=== PATIENT | female | born 1985 | race Two or more races ===

== ENCOUNTER 2020-11-10 15:33 | Emergency (ER) | payer MEDICAID ==
[~2020-11-10] VITALS: Ht 162.6 cm; Wt 78.9 kg
[2020-11-10 15:36] VITALS: BP 113/67
[2020-11-10] MEDS ORDERED: TETANUS-DIPTH-ACEL PERTUSSIS 0.5ML SYR Tdap IM ONE (18:15)
== END 2020-11-10 20:08 | disposition home or self-care (01) ==
LOC: ER 15:35
DX: S61.011A Laceration without foreign body of right thumb without damage to nail, initial encounter (principal); X58.XXXA Exposure to other specified factors, initial encounter; Y93.89 Activity, other specified; Y92.89 Other specified places as the place of occurrence of the external cause; Y99.8 Other external cause status
CPT/HCPCS: 12001; 90471; 90715

== ENCOUNTER 2024-01-01 07:32 | Emergency (ER) | payer MEDICAID, OTHER ==
[~2024-01-01] VITALS: Ht 162.6 cm; Wt 92.0 kg
[2024-01-01 08:23] VITALS: BP 124/74; PULSE 76; RESP 18; TEMP 97.8; O2SAT 98
[2024-01-01 10:04] LABS: Rapid Strep A Screen-Throat Negative
[2024-01-01] MEDS ORDERED: BENZ100C97 PO (10:29)
[2024-01-01] MEDS ORDERED: NABU-72 PO (10:29)
[2024-01-01] MEDS ORDERED: ALBUAER3 IN (10:35)
== END 2024-01-01 10:51 | disposition home or self-care (01) ==
LOC: ER 07:32
DX: J00 Acute nasopharyngitis [common cold] (principal); H92.03 Otalgia, bilateral; Z88.0 Allergy status to penicillin
CPT/HCPCS: 71046; 87070; 87880